=== PATIENT | female | born 1965 | race Caucasian/White ===

== ENCOUNTER 2025-05-10 16:03 | Outpatient (CLI) | payer BC, SELFPAY ==
[2025-05-12 22:44] LABS: HPV Source Cervix
[2025-05-15 16:08] LABS: Pap Test Digital Imaging Done
== END 2025-05-10 16:04 | disposition home or self-care (01) ==
PROVIDERS: Visit Provider Physician Assistant
DX: Z12.4 Encounter for screening for malignant neoplasm of cervix (principal)
CPT/HCPCS: 87624; 87625; 88141; 88142; 88175